=== PATIENT | female | born 1960 ===

== ENCOUNTER 2018-02-12 13:56 | Emergency (ER) | payer OTHER ==
[2018-02-12 13:56] VITALS: BMI 29.7
[2018-02-12 14:20] VITALS: RESP 18; TEMP 98.2
--- NOTE | 2018-02-12 14:44 | ED PDOC ---
Arrival/HPI - General Chief Complaint: Hip Pain Time Seen by Provider: 02/12/18 14:03 Historian: Patient - History of Present Illness Narrative History of Present Illness (Text): 02/12/18 14:44 57 year old female, with past medical history of diabetes and sciatica, presents to the Emergency department complaining of exacerbation of chronic left hip pain since yesterday. Patient informs visiting [facility] with the presented symptoms and was subsequently discharged home with pain medications after negative X-ray findings. Patient states unimproved symptoms after pain medications and has been unable to get in touch with her pain management doctor prompting her to present to the ED for evaluation. Patient denies any other somatic complaints. Patient denies any urinary symptoms or changes in bowel movement. Patient denies any fever, chills, nausea, vomiting, diarrhea, abdominal pain, chest pain, shortness of breath, neck pain, headache, dizziness or any other complaints. Patient denies any fall or trauma to the hip. PMD: Dr. Montero Time/Duration: 24 hours Symptom Onset: Gradual Symptom Course: Unchanged Activities at Onset: Light Context: Home Past Medical History - Provider Review Nursing Documentation Reviewed: Yes - Infectious Disease Hx of Infectious Diseases: None - Tetanus Immunization Tetanus Immunization: Up to Date - Cardiac Hx Cardiac Disorders: Yes Hx OK: No Hx Hypertension: Yes - Pulmonary Hx Respiratory Disorders: No - Neurological Hx Neurological Disorder: Yes HX Cerebrovascular Accident: No Hx Migraine: Yes Other/Comment: SCIATICA; NERVE PAIN - HEENT Hx HEENT Disorder: No - Renal Hx Renal Disorder: No - Endocrine/Metabolic Hx Endocrine Disorders: Yes Hx Diabetes Mellitus Type 2: Yes - Hematological/Oncological Hx Blood Disorders: No Hx Blood Transfusions: No - Integumentary Hx Dermatological Disorder: Yes Other/Comment: VERY LARGE SCAR , LEFT ABDOMEN FROM SURGERY FOR INTERNAL INFECTION; DOESN'T KNOW CAUSE; BECAME SEPTIC. - Musculoskeletal/Rheumatological Hx Musculoskeletal Disorders: Yes Hx Falls: Yes (2014) Hx Fractures: No Hx Herniated Disk: Yes Other/Comment: TENDINITIS RIGHT HIP - Gastrointestinal Hx Gastrointestinal Disorders: Yes Other/Comment: HIATAL HERNIA WITH REPAIR 1998 - Genitourinary/Gynecological Hx Genitourinary Disorders: Yes Other/Comment: OVARIAN CYST WITH PARTIAL HYSTY - Psychiatric Hx Psychophysiologic Disorder: Yes Hx Anxiety: Yes Hx Depression: No Hx Emotional Abuse: No Hx Physical Abuse: No Hx Substance Use: No - Past Surgical History Past Surgical History: Non-Contributing - Surgical History Hx Arthroscopy: Yes (BOTH KNEES AND RIGHT SHOULDER) Hx Hysterectomy: Yes (PARTIAL) Hx Orthopedic Surgery: Yes (REPAIR PETROS. MENISCUS; BURSITIS RIGHT SHOULDER) Hx Tonsillectomy: Yes - Anesthesia Hx Anesthesia: Yes Hx Anesthesia Reactions: No Hx Malignant Hyperthermia: No - Suicidal Assessment Feels Threatened In Home Enviroment: No Family/Social History - Physician Review Nursing Documentation Reviewed: Yes Family/Social History: No Known Family HX Smoking Status: Never Smoked Hx Alcohol Use: No Hx Substance Use: No Hx Substance Use Treatment: No Allergies/Home Meds Allergies/Adverse Reactions: Allergies latex Allergy (Intermediate, Verified 04/04/16 10:12) RASH morphine Allergy (Intermediate, Verified 04/04/16 10:12) RASH Home Medications: Home Meds Medication Instructions Recorded Confirmed Lisinopril 20 mg PO DAILY 01/20/14 04/04/16 Metformin HCl [Metformin] 1,000 mg PO BID 01/20/14 04/04/16 Canagliflozin [Invokana] 300 mg PO DAILY 08/14/15 04/04/16 Gabapentin [Neurontin] 600 mg PO TID 08/14/15 04/04/16 Insulin Glargine, Recombina 13 units SC HS 08/14/15 04/04/16 [Lantus] Omeprazole [Prilosec] 40 mg PO DAILY 08/14/15 04/04/16 Albiglutide [Tanzeum] 50 mg SQ QWK 04/04/16 04/04/16 Ibuprofen [Motrin Tab] 800 mg PO Q8 04/04/16 04/04/16 tiZANidine [Zanaflex] 4 mg PO HS 04/04/16 04/04/16 Review of Systems - Physician Review All systems were reviewed & negative as marked: Yes - Review of Systems Constitutional: absent: Fevers Respiratory: absent: SOB, Cough Cardiovascular: absent: Chest Pain, DANIELLE Gastrointestinal: absent: Abdominal Pain, Diarrhea, Nausea, Vomiting Musculoskeletal: Other (left hip pain). absent: Neck Pain Neurological: absent: Headache, Dizziness Physical Exam Vital Signs Reviewed: Yes Vital Signs Temp Pulse Resp BP Pulse Ox 02/12/18 14:19 98.2 F 99 H 18 163/88 H 97 Temperature: Afebrile Blood Pressure: Hypertensive Pulse: Regular Respiratory Rate: Normal Appearance: Positive for: Well-Appearing, Non-Toxic, Comfortable Pain Distress: Mild Mental Status: Positive for: Alert and Oriented X 3 - Systems Exam Head: Present: Atraumatic, Normocephalic. No: Tenderness Pupils: Present: PERRL Extroacular Muscles: Present: EOMI Conjunctiva: Present: Normal Ears: Present: Normal Mouth: Present: Moist Mucous Membranes Neck: Present: Normal Range of Motion. No: Meningeal Signs Respiratory/Chest: Present: Clear to Auscultation, Good Air Exchange Cardiovascular: Present: Regular Rate and Rhythm, Murmurs Abdomen: Present: Normal Bowel Sounds. No: Tenderness, Distention, Peritoneal Signs, Rebound, Guarding Back: Present: Normal Inspection. No: CVA Tenderness, Midline Tenderness Upper Extremity: Present: Normal Inspection, Normal ROM, NORMAL PULSES, Neurovascularly Intact, Capillary Refill < 2s. No: Edema, Tenderness, Swelling, Erythema Lower Extremity: Present: Normal Inspection, NORMAL PULSES, Neurovascularly Intact, Capillary Refill < 2 s. No: Edema, CALF TENDERNESS, Temperature Abnormalties Neurological: Present: GCS=15, CN II-XII Intact, Speech Normal, Motor Func Grossly Intact, Normal Sensory Function, Normal Cerebellar Funct, Gait Normal, Other (no saddle anesthesia) Skin: Present: Warm, Dry Psychiatric: Present: Alert, Oriented x 3 Medical Decision Making ED Course and Treatment: 02/12/18 14:40 Impression: 57 year old female presents to the Emergency department complaining of left sided hip pain. Pt notes hip pain x2 months for which she has recieved multiple Xrays, CTs and MRI. She notes recurrent pain exactly like chronic chest pain. She notes that she was supposed to see her pain management doctor but had insurance issues. She denies any L sided flank pain. She has no distended abdomen. She denies any falls or fracture. N/V intact to LLE. +SLR. Was seen yesterday for same issue at [facility], and d/c with pain meds. Will rx pain. No urinary complaints, rashes or vaginal d/c. Differential Diagnosis included but are not limited to: Hip pain exacerbation. Sciatica. Plan: -- Valium -- Toradol -- Ultram -- Reassess and disposition Prior Visits: Notes and results from previous visits were reviewed. Progress Notes: 02/12/18 16:09 appreciate consult w/ Dr. Montero: Previous CT and MRIs reviewed: Pt has a history of chronic L sided hip pain which has been imaged. Pt has chronic pain for which she is already taking pain meds. Per Dr. Montero Pt can follow up outpt. No flank pain, No cauda equina signs, Pain improved, walking well, clear for d/c home. - Medication Orders Current Medication Orders: Discontinued Medications Diazepam (Valium) 5 mg PO ONCE ONE; Protocol Stop: 02/12/18 14:41 - Scribe Statement The provider has reviewed the documentation as recorded by the Scribe Jacky Cardona. All medical record entries made by the Scribe were at my direction and personally dictated by me. I have reviewed the chart and agree that the record accurately reflects my personal performance of the history, physical exam, medical decision making, and the department course for this patient. I have also personally directed, reviewed, and agree with the discharge instructions and disposition. Disposition/Present on Arrival - Present on Arrival Any Indicators Present on Arrival: No History of DVT/PE: No History of Uncontrolled Diabetes: No Urinary Catheter: No History of Decub. Ulcer: No History Surgical Site Infection Following: None - Disposition Have Diagnosis and Disposition been Completed?: Yes Diagnosis: Chronic hip pain Disposition: HOME/ ROUTINE Disposition Time: 16:15 Condition: GOOD Discharge Instructions (ExitCare): Chronic Pain (DC), Hip Pain Prescriptions: diaZEpam [Valium] 5 mg PO Q8H PRN 3 Days #9 tab PRN Reason: Pain, Moderate (4-7) Referrals: Komal Montero MD [Primary Care Provider] - Follow up with primary Suzy Franco MD [Medical Doctor] - Follow up with primary Forms: [employer] (H[place]ian)
[2018-02-12 16:29] VITALS: BP 125/74; PULSE 80; O2SAT 100
== END 2018-02-12 16:48 | disposition home or self-care (01) ==
LOC: ED 13:56
DX: M25.552 Pain in left hip (principal); G89.29 Other chronic pain
CPT/HCPCS: 96372; 99284; J1885